=== PATIENT | female | born 1980 | race African-American/Black ===

== ENCOUNTER 2022-06-26 18:16 | Emergency (ER) | payer OTHER ==
[~2022-06-26] VITALS: Ht 165.1 cm; Wt 161.5 kg
[2022-06-26 18:35] VITALS: BP 167/91
[2022-06-26 20:13] LABS: BASOPHILS # (AUTO) 0.1 K/uL (0.00-0.22); BASOPHILS % (AUTO) 1.2 % (0.0-2.0); EOSINOPHILS # (AUTO) 0.4 K/uL (0-0.4); EOSINOPHILS % (AUTO) 4.1 % (0.0-4.0); HEMATOCRIT 39.4 % (36-48); HEMOGLOBIN 12.8 g/dL (12.0-16.0); LYMPHOCYTES # (AUTO) 2.6 K/uL (2.5-16.5); LYMPHOCYTES % (AUTO) 29.9 % (20.5-51.1); MEAN CORPUSCULAR HEMOGLOBIN 27 pg (27-31); MEAN CORPUSCULAR HGB CONC 32 g/dL (33-37); MEAN CORPUSCULAR VOLUME 82.1 fL (80-94); MONOCYTES # (AUTO) 0.6 K/uL (0.8-1.0); MONOCYTES % (AUTO) 7.3 % (1.7-9.3); NEUTROPHILS # (AUTO) 4.9 K/uL (1.8-7.7); NEUTROPHILS % (AUTO) 57.5 % (42.2-75.2); PLATELET COUNT (AUTO) 225 K/uL (140-450); RED CELL DISTRIBUTION WIDTH 16.7 % (11.6-13.7); WHITE BLOOD COUNT (AUTO) 8.6 K/uL (4.8-10.8)
[2022-06-26 20:27] LABS: ALBUMIN 3.7 g/dL (3.4-5.0); ANION GAP 10.8 (8-16); CARBON DIOXIDE 31.9 mmol/L (21-32); CREATININE 1.1 mg/dL (0.6-1.3); POTASSIUM 3.7 mmol/L (3.5-5.1); TOTAL BILIRUBIN 0.3 mg/dL (0.0-1.0)
[2022-06-26 21:35] LABS: APPEARANCE,URINE CLEAR (CLEAR); BILIRUBIN,URINE NEGATIVE (NEGATIVE); BLOOD, URINE NEGATIVE (NEGATIVE); COLOR,URINE YELLOW (YELLOW); LEUKOCYTE ESTERASE ,URINE NEGATIVE (NEGATIVE); NITRITE, URINE NEGATIVE (NEGATIVE); PH,URINE 6.5 (5.0-9.0); UGLUCOSE NEGATIVE (NEGATIVE)
--- NOTE | 2022-06-26 22:46 | NUR ---
Patient taken to bed 8.
--- NOTE | 2022-06-26 23:00 | NUR ---
41 Y/O F presents with10/10 pain all over body with swelling. pt stated the swelling is due to water weight. pt stated she has had a headache with nausea and been bed bound xthursday. pt stated she has blurry vision and this condition has been going on for a while and she has been living with it. PMH- HTN, arthritis, asteoarthritis bilateral knees allergies-NSAIDs
--- NOTE | 2022-06-26 23:11 | NUR ---
JEANNIE NICHOLS ASSESSING PT
--- NOTE | 2022-06-26 23:15 | NUR ---
Dr. Shi at bedside
--- NOTE | 2022-06-27 00:51 | NUR ---
pt resting in room on motor winder
[2022-06-27] MEDS ORDERED: ONDANSETRON 4 MG TAB PO ONE (01:00)
[2022-06-27] MEDS ORDERED: IBUPROFEN 600 MG TAB PO ONE (01:05)
[2022-06-27 02:15] VITALS: BP 155/91
--- NOTE | 2022-06-27 02:15 | NUR ---
Patient discharged with v/s stable. Written and verbal after care instructions given and explained by Dr. Shi. Patient verbalized understanding. Ambulatory with steady gait. All questions addressed prior to discharge. Advised to follow up with PMD.
== END 2022-06-27 02:15 | disposition home or self-care (01) ==
LOC: MED 18:16
DX: R53.1 Weakness (principal); E66.01 Morbid (severe) obesity due to excess calories; Z20.822 Contact with and (suspected) exposure to COVID-19; J45.909 Unspecified asthma, uncomplicated; I10 Essential (primary) hypertension; Z88.2 Allergy status to sulfonamides; Z88.1 Allergy status to other antibiotic agents; Z88.6 Allergy status to analgesic agent
CPT/HCPCS: 36415; 71045; 74176; 80053; 81003; 81025; 83605; 83880; 85025; 87040; 87086; 87426; 87804; 93005; 99285; Q0162